=== PATIENT | female | born 1995 | race Caucasian/White ===

== ENCOUNTER 2021-10-10 20:30 | Observation (INO) | payer MEDICAID ==
[~2021-10-10] VITALS: Ht 165.1 cm; Wt 96.6 kg
== END 2021-10-10 22:20 | disposition home or self-care (01) ==
LOC: SPU 20:30
PROVIDERS: ADMIT Obstetrics & Gynecology; ATTEND Obstetrics & Gynecology
DX: O36.8130 Decreased fetal movements, third trimester, not applicable or unspecified (principal); Z3A.38 38 weeks gestation of pregnancy
CPT/HCPCS: 81002; G0378; G0379